=== PATIENT | female | born 1970 | race Two or more races ===

== ENCOUNTER 2021-03-20 05:25 | Day surgery (SDC) | payer OTHER ==
[~2021-03-20 05:25] MED LIST: DIOVAN HCT 1601 EACH PO; METFORMIN HCL500 M3 PO; SYNTHROID75 MCG PO
[2021-03-20] MEDS ORDERED: NAPR500T14 PO (09:23)
[2021-03-20] MEDS ORDERED: MORGIDOX100 MG PO (09:23)
== END 2021-03-20 13:30 | disposition home or self-care (01) ==
LOC: CIR.AMB 05:25
PROVIDERS: ATTEND Obstetrics & Gynecology
DX: N84.1 Polyp of cervix uteri (principal); D25.0 Submucous leiomyoma of uterus; Z20.822 Contact with and (suspected) exposure to COVID-19